=== PATIENT | female | born 1965 | race Caucasian/White ===

== ENCOUNTER 2017-02-01 20:41 | Emergency (ER) | payer BC ==
[~2017-02-01] VITALS: Ht 162.6 cm; Wt 71.8 kg
[~2017-02-01 20:41] MED LIST: BACT800T5 PO; METH500T3 PO; NAPR500T PO; TAMO20TA6 PO
[2017-02-01 20:50] VITALS: BP 147/86; PULSE 78; RESP 20; TEMP 97.4; O2SAT 99
--- NOTE | 2017-02-01 21:10 | PD ---
HPI Chief Complaint: Fall Time Seen by Provider: 20:56 Travel History International Travel<30 days: No Contact w/Intl Traveler<30days: No Traveled to known affect area: No History of Present Illness HPI This 51-year-old female fell in her shower at home. She is not sure what caused the fall. She says that shower is not slippery. She suddenly fell onto the left side of her body. She hit her head and face. She is having pain around the left eye. He is also having pain in her left knee. Her heard the fall and went to see her. She was immediately awake so she is quite uncomfortable with pain. She has a history of breast cancer and is on tamoxifen. He does not have any history of irregular heartbeat. She thinks she may have fainted previously many years ago. PFSH Past Medical History Blood Disorders: No Cancer: Yes (R BREAST CA) Cardiovascular Problems: No Chemotherapy: Yes Diabetes: No Diminished Hearing: No Endocrine: No Genitourinary: No Hepatitis: No Hiatal Hernia: No Immune Disorder: No Implanted Vascular Access Dvce: Yes Musculoskeletal: Yes (BACK PAIN) Neurologic: No Psychiatric: No Reproductive: No Respiratory: No Radiation Therapy: Yes Thyroid Disease: No Past Surgical History Abdominal Surgery: Yes (nicolas appendectomy) AICD: No Body Medical Devices: BILAT BREAST IMPLANTS Cardiac Surgery: No Ear Surgery: No Endocrine Surgery: No Eye Surgery: No Genitourinary Surgery: No Gynecologic Surgery: Yes (TUBAL) Hysterectomy: Yes Joint Replacement: No Mastectomy: Yes Oral Surgery: No Pacemaker: No Thoracic Surgery: Yes (BILAT MASTECTOMY WITH LYMPH NODES REMOVED ON RIGHT) Other Surgery: Yes (DOUBLE MASTECTOMY& 4 RECONSTRUCTIONS, BILATERAL PLANTAR FASCIOTOMIES, RAVH ) Social History Alcohol Use: Yes (RARELY) Tobacco Use: No Substance Use: No Allergies-Medications (Allergen,Severity, Reaction): Coded Allergies: Sulfa (Sulfonamide Antibiotics) (Unverified Allergy, Mild, tachcardia, 02/01/17) tachycardia Reported Meds & Prescriptions Reported Meds & Active Scripts Active Reported Multiple Vitamin 1 Tab 1 Tab PO DAILY Tylenol (Acetaminophen) 325 Mg Tab 650 Mg PO Q4H PRN Xanax (Alprazolam) 0.25 Mg Tab 0.25 Mg PO HS PRN Tamoxifen (Tamoxifen Citrate) 20 Mg Tab 20 Mg PO BID Review of Systems General / Constitutional: No: Fever, Chills Eyes: No: Diploplia, Blurred Vision HENT: No: Headaches, Vertigo Cardiovascular: No: Chest Pain or Discomfort, Palpitations Respiratory: No: Cough, Shortness of Breath Gastrointestinal: No: Nausea, Vomiting Genitourinary: No: Urgency, Frequency Musculoskeletal: Positive: Myalgias, Pain Endocrine: No: Heat Intolerance Hematologic/Lymphatic: No: Easy Bruising Physical Exam Narrative GENERAL: Well-developed female SKIN: Focused skin assessment warm/dry. HEAD:. Normocephalic. There is swelling above the left eye. There is what appears to be a superficial laceration on the lateral aspect of the eyelid. The edges of the wound are well opposed. There is some bruising of the upper portion of the orbit there is tenderness of the left orbit superiorly and inferiorly EYES: Pupils equal and round. No scleral icterus. No injection or drainage. ENT: No nasal bleeding or discharge. Mucous membranes pink and moist. NECK: Trachea midline. No JVD. CARDIOVASCULAR: Regular rate and rhythm. No murmur appreciated. RESPIRATORY: No accessory muscle use. Clear to auscultation. Breath sounds equal bilaterally. GASTROINTESTINAL: Abdomen soft, non-tender, nondistended. Hepatic and splenic margins not palpable. MUSCULOSKELETAL: No obvious deformities. No clubbing. No cyanosis. No edema. There is a skin flap which is about 1 cm in size overlying the tibial tubercle. There is some swelling and tenderness over the proximal tibia NEUROLOGICAL: Awake and alert. No obvious cranial nerve deficits. Motor grossly within normal limits. Normal speech. PSYCHIATRIC: Appropriate mood and affect; insight and judgment normal. Data Data Last Documented VS Vital Signs Date Time Temp Pulse Resp B/P (MAP) Pulse Ox O2 Delivery O2 Flow Rate FiO2 02/01/17 21:54 78 20 02/01/17 21:11 129/91 (104) 97 02/01/17 20:50 97.4 Orders Orders Electrocardiogram (02/01/17 21:04) Complete Blood Count With Diff (02/01/17 21:04) Basic Metabolic Panel (Bmp) (02/01/17 21:04) Ct Brain W/O Iv Contrast(Rout) (02/01/17 21:04) Ct Facial Bones W/O Iv Cont (02/01/17 21:04) Knee, Complete (4vws) (02/01/17 21:04) Tetanus/Diphtheria Tox Adult (Tetanus/Di (02/01/17 21:30) Ondansetron Inj (Zofran Inj) (02/01/17 21:45) Acetamin-Hydrocod 325-5 Mg (Farrar 5-325 (02/01/17 21:45) Labs Laboratory Tests Test 02/01/17 21:30 White Blood Count 7.8 TH/MM3 Red Blood Count 3.98 MIL/MM3 Hemoglobin 12.3 GM/DL Hematocrit 36.6 % Mean Corpuscular Volume 91.9 FL Mean Corpuscular Hemoglobin 31.0 PG Mean Corpuscular Hemoglobin Concent 33.7 % Red Cell Distribution Width 13.0 % Platelet Count 271 TH/MM3 Mean Platelet Volume 7.6 FL Neutrophils (%) (Auto) 60.2 % Lymphocytes (%) (Auto) 27.8 % Monocytes (%) (Auto) 9.0 % Eosinophils (%) (Auto) 2.6 % Basophils (%) (Auto) 0.4 % Neutrophils # (Auto) 4.6 TH/MM3 Lymphocytes # (Auto) 2.2 TH/MM3 Monocytes # (Auto) 0.7 TH/MM3 Eosinophils # (Auto) 0.2 TH/MM3 Basophils # (Auto) 0.0 TH/MM3 CBC Comment DIFF FINAL Differential Comment Blood Urea Nitrogen 13 MG/DL Creatinine 0.61 MG/DL Random Glucose 99 MG/DL Calcium Level 8.7 MG/DL Sodium Level 132 MEQ/L Potassium Level 3.8 MEQ/L Chloride Level 99 MEQ/L Carbon Dioxide Level 25.6 MEQ/L Anion Gap 7 MEQ/L Estimat Glomerular Filtration Rate 103 ML/MIN [facility] Medical Decision Making Medical Screen Exam Complete: Yes Emergency Medical Condition: Yes Medical Record Reviewed: Yes Differential Diagnosis Differential includes orbital fracture, subdural hematoma, fractured knee, contusions, syncope Narrative Course X-ray of the knee is negative for fracture. CT scan of the head and facial bones has been done and are negative for fracture. There is a small amount of subcutaneous air left periorbital soft tissues and there is a laceration at the site. Cervical spine has been cleared using Nexus criteria. CBC and 7 are unremarkable. An EKG shows first-degree AV block. I have not determined a cause for syncope, in fact we do not know for sure whether there was a syncopal episode. Diagnosis Primary Impression: Multiple contusions Additional Instructions: Apply ice to painful areas Disposition: 01 DISCHARGE HOME Condition: Stable David Arias MD Feb 01, 2017 21:10
[2017-02-01 21:11] VITALS: BP 129/91; PULSE 80; RESP 20; O2SAT 97
[2017-02-01] MEDS ORDERED: ALPR.25 PO (21:21)
[2017-02-01] MEDS ORDERED: TYLE325T PO (21:21)
[2017-02-01] MEDS ORDERED: MULTTAB67 PO (21:21)
[2017-02-01] MEDS ORDERED: TETANUS/DIPHTHERIA TOXOID ADULT 0.5 ML VIAL IM ONE (21:30)
--- NOTE | 2017-02-01 21:36 | RADRPT ---
EXAM DATE/TIME: 02/01/2017 21:08 [facility] COMPARISON: No previous studies available for comparison. INDICATIONS : Left knee pain. MEDICAL HISTORY : None. SURGICAL HISTORY : None. ENCOUNTER: Initial ACUITY: 1 day PAIN SCORE: 4/10 LOCATION: Left knee FINDINGS: Four view examination of the left knee demonstrates no evidence of fracture or dislocation. Bony min eralization is normal. The articular surfaces are intact. The suprapatellar soft tissues have a nor mal configuration. There is a well-corticated ossific fragment adjacent to the lateral aspect of the patella, nonacute in appearance. No effusion. CONCLUSION: No acute disease. Marcus Redd MD on February 01, 2017 at 21:34 Board Certified Radiologist. This report was verified electronically.
[2017-02-01 21:45] LABS: AUTOMATED NEUTROPHIL # 4.6 TH/MM3 (1.8-7.7); BASOPHIL % 0.4 % (0.0-2.0); EOSINOPHIL # 0.2 TH/MM3 (0-0.4); EOSINOPHIL % 2.6 % (0.0-4.0); HEMATOCRIT 36.6 % (35.0-46.0); HEMO FLAGS DIFF FINAL; LYMPH % 27.8 % (9.0-44.0); LYMPHOCYTE # 2.2 TH/MM3 (1.0-4.8); MEAN CELL VOLUME 91.9 FL (80.0-100.0); MEAN CORPUSCULAR HGB CONC 33.7 % (32.0-36.0); NEUT % 60.2 % (16.0-70.0); PLATELET COUNT 271 TH/MM3 (150-450); RED BLOOD COUNT 3.98 MIL/MM3 (4.00-5.30); WHITE BLOOD COUNT 7.8 TH/MM3 (4.0-11.0)
[2017-02-01] MEDS ORDERED: ONDANSETRON HCL 4 MG/2 ML VIAL IV PUSH ONE (21:45)
[2017-02-01] MEDS ORDERED: ACETAMINOPHEN/HYDROcodone 325 MG/5 MG TAB PO ONE (21:45)
[2017-02-01 21:56] LABS: POTASSIUM 3.8 MEQ/L (3.5-5.1)
[2017-02-01 21:58] LABS: BICARBONATE 25.6 MEQ/L (21.0-32.0)
--- NOTE | 2017-02-01 22:14 | RADRPT ---
EXAM DATE/TIME: 02/01/2017 21:55 [facility] COMPARISON: No previous studies available for comparison. INDICATIONS : Trauma. Fall. Laceration above left brow. RADIATION DOSE: 64.16 CTDIvol (mGy) MEDICAL HISTORY : Carcinoma, breast. SURGICAL HISTORY : None. ENCOUNTER: Initial ACUITY: 1 day PAIN SCALE: 7/10 LOCATION: Left frontal TECHNIQUE: Multiple contiguous axial images were obtained of the head. Using automated exposure control and adj ustment of the mA and/or kV according to patient size, radiation dose was kept as low as reasonably a chievable to obtain optimal diagnostic quality images. DICOM format image data is available electro nically for review and comparison. FINDINGS: CEREBRUM: The ventricles are normal for age. No evidence of midline shift, mass lesion, hemorrhage or acute in farction. No extra-axial fluid collections are seen. POSTERIOR FOSSA: The cerebellum and brainstem are intact. The 4th ventricle is midline. The cerebellopontine angle i s unremarkable. EXTRACRANIAL: The visualized portion of the orbits is intact. SKULL: The calvaria is intact. No evidence of skull fracture. CONCLUSION: Normal examination. Marcus Redd MD on February 01, 2017 at 22:12 Board Certified Radiologist. This report was verified electronically.
--- NOTE | 2017-02-01 22:16 | RADRPT ---
EXAM DATE/TIME: 02/01/2017 21:55 [facility] COMPARISON: No previous studies available for comparison. INDICATIONS : Trauma. Fall. Laceration above left brow. RADIATION DOSE: 34.91 CTDIvol (mGy) MEDICAL HISTORY : Carcinoma, breast. SURGICAL HISTORY : None. ENCOUNTER: Initial ACUITY: 1 day PAIN SCORE: 7/10 LOCATION: Left superior orbit. TECHNIQUE: Volumetric scanning of the facial bones was performed. Using automated exposure control and adjustme nt of the mA and/or kV according to patient size, radiation dose was kept as low as reasonably achiev able to obtain optimal diagnostic quality images. DICOM format image data is available electronicall y for review and comparison. FINDINGS: ORBITS: The orbital and infraorbital osseous structures are intact. The retroconal structures have a normal configuration. No radiopaque foreign bodies are seen. There is a small focus of air within the pre-s eptal soft tissues of the left orbit on image 23 of this presumed site of laceration. Slight soft swe lling. NASAL BONE: The nasal bone and maxillary spine are intact ZYGOMATIC ARCHES: Symmetric without evidence of fracture. SINUSES: The maxillary, ethmoid and frontal sinuses are intact. No air-fluid levels seen. NASAL CAVITY: The nasal septum is intact and midline. The lacrimal ducts are intact. SOFT TISSUES: No radiopaque foreign bodies seen. No soft-tissue swelling is seen. INTRACRANIAL: No intracranial air seen. CRIBIFORM PLATE: Grossly intact. CONCLUSION: 1. Left periorbital soft tissue swelling and a focus of subcutaneous air identified. Marcus Redd MD on February 01, 2017 at 22:13 Board Certified Radiologist. This report was verified electronically.
[2017-02-01 22:40] VITALS: BP 135/71
--- NOTE | 2017-02-02 12:39 | EKG ---
Date Performed: 02/01/2017 Time Performed: 21:30:35 PTAGE: 51 years EKG: Sinus rhythm WITH FIRST DEGREE AV BLOCK ABNORMAL ECG Compared to prior tracing no significant change PREVIOUS TRACING : 09/18/2015 07.00 DOCTOR: Jayden Sousa Interpretating Date/Time 02/02/2017 12:34:08
== END 2017-02-01 22:41 | disposition home or self-care (01) ==
LOC: PHED 20:41
DX: S01.112A Laceration without foreign body of left eyelid and periocular area, initial encounter (principal); S00.12XA Contusion of left eyelid and periocular area, initial encounter; S80.12XA Contusion of left lower leg, initial encounter; S80.02XA Contusion of left knee, initial encounter; R94.31 Abnormal electrocardiogram [ECG] [EKG]; Z23 Encounter for immunization; Z87.39 Personal history of other diseases of the musculoskeletal system and connective tissue; Z85.3 Personal history of malignant neoplasm of breast; W18.2XXA Fall in (into) shower or empty bathtub, initial encounter
CPT/HCPCS: 70450; 70486; 73564; 80048; 85025; 90471; 90714; 93005; 96374; 99285; J2405

== ENCOUNTER 2017-05-23 13:24 | Observation (INO) | payer BC ==
[2017-05-23] VITALS (10 sets, daily range): BP systolic 86–143; BP diastolic 50–94; PULSE 69–90; RESP 17–20; TEMP 96.5–98.1; O2SAT 94–98
[~2017-05-23] VITALS: Ht 165.1 cm; Wt 73.0 kg
[~2017-05-23 13:24] MED LIST changes: +ALPR.25 PO; +ASPI81TA23 PO; -BACT800T5 PO; -METH500T3 PO; +MULTTAB67 PO; -NAPR500T PO; +TYLE325T PO
--- NOTE | 2017-05-23 13:57 | PD ---
HPI Chief Complaint: Chest Pain Time Seen by Provider: 13:31 Travel History International Travel<30 days: No Contact w/Intl Traveler<30days: No Traveled to known affect area: No History of Present Illness HPI 52yo F with PMH of breast cancer s/p double mastectomy and cancer free since 2014 presents to the ED with c/o left sided chest pain for 4 days. Said it is squeezing, feels deep and intermittent. Said that today, her chest pain remained longer and was associated with sob so she became worried. No exacerbating or alleviating factors. Said she has never had similar chest pain before. She did have a stress test [address] Altamirano. Former smoker. Grandmother of heart attack in her 50s. Denies any fever, cough, n/v, abdominal pain, focal weakness or numbness. PFSH Past Medical History Blood Disorders: No Cancer: Yes (R BREAST CA) Cardiovascular Problems: No Chemotherapy: Yes Diabetes: No Diminished Hearing: No Endocrine: No Genitourinary: No Hepatitis: No Hiatal Hernia: No Immune Disorder: No Implanted Vascular Access Dvce: Yes Musculoskeletal: Yes (BACK PAIN) Neurologic: No Psychiatric: No Reproductive: No Respiratory: No Radiation Therapy: Yes Thyroid Disease: No Influenza Vaccination: No ?: Not Tubal Ligation: Yes Past Surgical History Abdominal Surgery: Yes AICD: No Appendectomy: Yes Body Medical Devices: BILAT BREAST IMPLANTS Cardiac Surgery: No Cholecystectomy: Yes Ear Surgery: No Endocrine Surgery: No Eye Surgery: No Genitourinary Surgery: No Gynecologic Surgery: Yes Hysterectomy: Yes Joint Replacement: No Mastectomy: Yes (BILATERAL W/ LYMPH NODE DISSECTION RIGHT) Oral Surgery: No Pacemaker: No Thoracic Surgery: Yes (BILAT MASTECTOMY WITH LYMPH NODES REMOVED ON RIGHT) Other Surgery: Yes (DOUBLE MASTECTOMY& 4 RECONSTRUCTIONS, BILATERAL PLANTAR FASCIOTOMIES, RAVH ) Social History Alcohol Use: Yes (RARELY) Tobacco Use: No Substance Use: No Allergies-Medications (Allergen,Severity, Reaction): Coded Allergies: Sulfa (Sulfonamide Antibiotics) (Unverified Allergy, Mild, tachcardia, ) tachycardia Reported Meds & Prescriptions Reported Meds & Active Scripts Active Reported Aspirin EC (Aspirin) 81 Mg Tabdr 81 Mg PO DAILY Multiple Vitamin 1 Tab 1 Tab PO DAILY Tamoxifen (Tamoxifen Citrate) 20 Mg Tab 20 Mg PO DAILY Review of Systems Except as stated in HPI: all other systems reviewed are Neg Physical Exam Narrative GENERAL: 52yo F in mild distress. SKIN: Focused skin assessment warm/dry. HEAD: Atraumatic. Normocephalic. EYES: Pupils equal and round. No scleral icterus. No injection or drainage. ENT: No nasal bleeding or discharge. Mucous membranes pink and moist. NECK: Trachea midline. No JVD. CARDIOVASCULAR: Regular rate and rhythm. No murmur appreciated. RESPIRATORY: No accessory muscle use. Clear to auscultation. Breath sounds equal bilaterally. GASTROINTESTINAL: Abdomen soft, non-tender, nondistended. MUSCULOSKELETAL: No obvious deformities. No clubbing. No cyanosis. No edema. NEUROLOGICAL: Awake and alert. No obvious cranial nerve deficits. Motor grossly within normal limits. Normal speech. PSYCHIATRIC: Appropriate mood and affect; insight and judgment normal. Data Data Last Documented VS Vital Signs Date Time Temp Pulse Resp B/P (MAP) Pulse Ox O2 Delivery O2 Flow Rate FiO2 05/23/17 15:20 69 17 108/72 (84) 96 Room Air 05/23/17 13:37 98.1 Orders Orders Electrocardiogram (05/23/17 13:48) Complete Blood Count With Diff (05/23/17 13:48) Basic Metabolic Panel (Bmp) (05/23/17 13:48) Ckmb (Isoenzyme) Profile (05/23/17 13:48) Troponin I (05/23/17 13:48) Chest, Single Ap (05/23/17 13:48) Iv Access Insert/Monitor (05/23/17 13:48) Ecg Monitoring (05/23/17 13:48) Oxygen Administration (05/23/17 13:48) Oximetry (05/23/17 13:48) Aspirin Chew (Aspirin Chew) (05/23/17 14:00) Nitroglycerin Sl (Nitrostat Sl) (05/23/17 14:00) Sodium Chlor 0.9% 1000 Ml Inj (Ns 1000 M (05/23/17 14:45) Troponin I (05/23/17 14:44) Electrocardiogram (05/23/17 14:31) Acetaminophen (Tylenol) (05/23/17 15:30) Labs Laboratory Tests Test 05/23/17 13:35 05/23/17 14:50 White Blood Count 7.0 TH/MM3 Red Blood Count 4.65 MIL/MM3 Hemoglobin 14.3 GM/DL Hematocrit 43.0 % Mean Corpuscular Volume 92.5 FL Mean Corpuscular Hemoglobin 30.6 PG Mean Corpuscular Hemoglobin Concent 33.1 % Red Cell Distribution Width 12.8 % Platelet Count 273 TH/MM3 Mean Platelet Volume 8.0 FL Neutrophils (%) (Auto) 58.2 % Lymphocytes (%) (Auto) 28.1 % Monocytes (%) (Auto) 10.0 % Eosinophils (%) (Auto) 2.3 % Basophils (%) (Auto) 1.4 % Neutrophils # (Auto) 4.0 TH/MM3 Lymphocytes # (Auto) 2.0 TH/MM3 Monocytes # (Auto) 0.7 TH/MM3 Eosinophils # (Auto) 0.2 TH/MM3 Basophils # (Auto) 0.1 TH/MM3 CBC Comment DIFF FINAL Differential Comment Blood Urea Nitrogen 12 MG/DL Creatinine 0.69 MG/DL Random Glucose 82 MG/DL Calcium Level 8.6 MG/DL Sodium Level 137 MEQ/L Potassium Level 3.8 MEQ/L Chloride Level 102 MEQ/L Carbon Dioxide Level 27.5 MEQ/L Anion Gap 8 MEQ/L Estimat Glomerular Filtration Rate 89 ML/MIN Total Creatine Kinase 54 U/L Troponin I LESS THAN 0.02 NG/ML 0.02 NG/ML MDM Medical Decision Making Medical Screen Exam Complete: Yes Emergency Medical Condition: Yes Interpretation(s) EKG: NSR 79bpm. Normal axis. No ST segment elevation or depression. EKG: NSR 70bpm. Normal axis. New TWI aVL, V2. QTc mildly prolong at 469ms. Differential Diagnosis ACS vs. GERD vs. musculoskeletal pain vs. pneumonia Narrative Course 52yo F with left sided chest pain that is squeezing and intermittent. According to Wells criteria, do not think pt has PE. Pt denies any hemoptysis, recent surgery or immobilization, history or PE/DVT, leg swelling or pain. Pt is not tachycardic and saturating at 98% on RA. Labs reviewed, no leukocytosis. H/H normal. Troponin negative. I was informed by my nurse that pt's blood pressure dropped after her third sublingual nitroglycerin to systolic in the 80s. Chest pain has actually improved. Pt felt dizzy and her head was place flat which helped. She was also given some NS IVF and blood pressure improved. My nurse said her heart rate went down to 40s and it was normal when I walked in. Second EKG was completed and is was NSR 70bpm. Normal axis. TWI aVL, V2 which is new from 1st EKG. QTc also is mildly prolong in 2nd EKG. Will admit for serial EKG and enzymes. Will send second enzyme. Troponin #2 negative. Pt now has a headache after nitro and given acetaminophen. CXR negative. Discussed with Dr. Bullock and accepted to his service. Diagnosis Primary Impression: Chest pain Qualified Codes: R07.9 - Chest pain, unspecified Admitting Information Admitting Physician Requests: Observation Carlotta Cosby DO May 23, 2017 13:57
[2017-05-23 13:59] LABS: BASOPHIL # 0.1 TH/MM3 (0-0.2); BASOPHIL % 1.4 % (0.0-2.0); EOSINOPHIL # 0.2 TH/MM3 (0-0.4); EOSINOPHIL % 2.3 % (0.0-4.0); HEMOGLOBIN 14.3 GM/DL (11.6-15.3); LYMPH % 28.1 % (9.0-44.0); MEAN CELL VOLUME 92.5 FL (80.0-100.0); MEAN CORPUSCULAR HEMOGLOBIN 30.6 PG (27.0-34.0); MEAN CORPUSCULAR HGB CONC 33.1 % (32.0-36.0); MONOCYTE # 0.7 TH/MM3 (0-0.9); NEUT % 58.2 % (16.0-70.0); PLATELET COUNT 273 TH/MM3 (150-450); RED BLOOD COUNT 4.65 MIL/MM3 (4.00-5.30); RED CELL DISTRIBUTION WIDTH 12.8 % (11.6-17.2)
[2017-05-23] MEDS ORDERED: ASPIRIN 81 MG CHEW TAB PO ONE (14:00)
[2017-05-23 14:08] LABS: CHLORIDE 102 MEQ/L (98-107); SODIUM (NA) 137 MEQ/L (136-145)
[2017-05-23 14:10] LABS: CALCIUM 8.6 MG/DL (8.5-10.1)
[2017-05-23 14:11] LABS: BICARBONATE 27.5 MEQ/L (21.0-32.0); BLOOD UREA NITROGEN 12 MG/DL (7-18); GLUCOSE,RANDOM 82 MG/DL (74-106)
[2017-05-23] MEDS: NITROGLYCERIN 0.4 MG SL 25 TABS/BTL SL SCH ×3 (14:12→14:21)
[2017-05-23 14:14] LABS: CREATININE 0.69 MG/DL (0.50-1.00); GLOMERULAR FILTRATION RATE 89 ML/MIN (>89)
[2017-05-23 14:19] LABS: TROPONIN I LESS THAN 0.02 NG/ML (0.02-0.05)
[2017-05-23] MEDS ORDERED: SODIUM CHLOR 0.9% 1000 ML INJ 1,000 ML IV ONE (14:45)
[2017-05-23] MEDS ORDERED: ACETAMINOPHEN 325 MG TAB PO ONE (15:30)
--- NOTE | 2017-05-23 15:30 | RADRPT ---
EXAM DATE/TIME: 05/23/2017 14:47 [facility] COMPARISON: No previous studies available for comparison. INDICATIONS : Chest pain, short of breath MEDICAL HISTORY : Carcinoma, breast. SURGICAL HISTORY : Mastectomy, bilateral. ENCOUNTER: Initial ACUITY: 4 - 6 days PAIN SCORE: 3/10 LOCATION: Bilateral chest FINDINGS: Single AP view of the chest. The lungs are clear. Cardiomediastinal silhouette within normal limits. No evidence of pleural effusion or pneumothorax. CONCLUSION: No acute cardiopulmonary disease identified. Michele Medina MD on May 23, 2017 at 15:28 Board Certified Radiologist. This report was verified electronically.
[2017-05-23] MEDS ORDERED: ONDANSETRON HCL 4 MG/2 ML VIAL IV PUSH PRN (17:30)
[2017-05-23] MEDS ORDERED: SODIUM CHLORIDE 0.9% FLUSH 10 ML FLUSH IV FLUSH PRN (17:30)
[2017-05-23] MEDS: ACETAMINOPHEN 500 MG CPLT PO PRN ×2 (17:58→21:14)
--- NOTE | 2017-05-23 18:19 | HHI.HP ---
HPI Service [facility] Primary Care Physician Christina Haji M.D. Admission Diagnosis Chest pain Diagnoses: (1) Chest pain Chief Complaint: Chest pain Travel History International Travel<30 Days: No Contact w/Intl Traveler <30 Da: No Traveled to Known Affected Are: No History of Present Illness This is a pleasant 52-year-old female patient with a known medical history of breast cancer who presented to the ED with complaints of chest pain. Patient states that every night for the past four days while resting in bed she has developed a left sided chest pain, characterized as intermittent and tight in nature, denies any radiation of pain, rates it a 3/10 at its worst on pain scale , denies any associated vomiting or diaphoresis, does admit to associated nausea and shortness of breath with pain. Patient states that it feels "deep" and squeezing at times. Denies ever having this pain before. Denies any alleviating or aggravating factors. She states she did not take anything for the pain at home. Patient did undergo a cardiac stress test roughly [address] Altamirano which was reportedly negative. Patient has been treated for right breast cancer with bilateral vasectomy and dorsal flap surgery. Patient does have chronic back pain due to this surgery as well as pain from mastectomy , but states that this pain is much different. Denies any recent illness including fever, cough, nausea, vomiting, abdominal pain, diarrhea or dysuria. Does admit to increase in recent stressors. 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 Review of Systems Constitutional: DENIES: Fever, Chills Eyes: DENIES: Blurred vision, Diplopia Respiratory: COMPLAINS OF: Shortness of breath, DENIES: Cough, Sputum production Cardiovascular: COMPLAINS OF: Chest pain, DENIES: Palpitations Gastrointestinal: COMPLAINS OF: Nausea, DENIES: Abdominal pain, Black stools, Bloody stools, Constipation, Diarrhea, Vomiting Hematologic/lymphatic: DENIES: Bruising Immunologic/allergic: DENIES: Eczema Neurologic: DENIES: Abnormal gait Psychiatric: COMPLAINS OF: Anxiety Except as stated in HPI: all other systems reviewed are Neg Past Family Social History Past Medical History Right breast cancer with mastectomy on radiation by mouth Chronic back pain Past Surgical History Bilateral breast mastectomy and breast implants Cholecystectomy Reported Medications Active Reported Aspirin EC (Aspirin) 81 Mg Tabdr 81 Mg PO DAILY Multiple Vitamin 1 Tab 1 Tab PO DAILY Tamoxifen (Tamoxifen Citrate) 20 Mg Tab 20 Mg PO DAILY Allergies: Coded Allergies: Sulfa (Sulfonamide Antibiotics) (Unverified Allergy, Mild, tachcardia, ) tachycardia Active Ordered Medications Current Medications Medications (Trade) Dose Ordered Sig/Yuridia Route Start Time Stop Time Status Last Admin (NS Flush) 2 ml UNSCH PRN IV FLUSH 05/23/17 17:30 (NS Flush) 2 ml BID IV FLUSH 05/23/17 21:00 (Tylenol) 500 mg Q4H PRN PO 05/23/17 17:30 (Zofran Inj) 4 mg Q6H PRN IV PUSH 05/23/17 17:30 (Ecotrin Ec) 81 mg DAILY PO 05/24/17 09:00 (Nolvadex) 20 mg DAILY PO 05/24/17 09:00 (Theragran) 1 tab DAILY PO 05/24/17 09:00 Family History Maternal medical history significant for hypertension. Social History Denies any current tobacco use, states she quit 25 years ago. Denies any alcohol use. Denies any illicit drug use. Physical Exam Vital Signs Vital Signs Date Time Temp Pulse Resp B/P (MAP) Pulse Ox O2 Delivery O2 Flow Rate FiO2 05/23/17 17:02 97.7 74 20 125/88 (100) 94 05/23/17 17:00 05/23/17 15:20 69 17 108/72 (84) 96 Room Air 05/23/17 14:25 17 05/23/17 14:23 85 18 86/50 (62) Room Air 05/23/17 14:20 86 17 106/75 (85) 94 Room Air 05/23/17 14:15 90 18 102/78 (86) Room Air 05/23/17 14:12 74 18 120/86 (97) Room Air 05/23/17 13:37 98.1 80 18 143/94 (110) 98 Physical Exam GENERAL: Well-nourished, well-developed patient in NAD. SKIN: Warm and dry. No rash. HEAD: Normocephalic. Atraumatic. EYES: Pupils equal and round. No scleral icterus. No injection or drainage. ENT: No nasal bleeding or discharge. Mucous membranes pink and moist. NECK: Supple. Trachea midline. CARDIOVASCULAR: Regular rate and rhythm. S1, S2 noted. No murmur appreciated. no reproducible chest pain. RESPIRATORY: No accessory muscle use. Clear to auscultation. Breath sounds equal bilaterally. GASTROINTESTINAL: Abdomen soft, non-tender, nondistended. Normoactive bowel sounds x4. MUSCULOSKELETAL: No obvious deformities. Extremities without clubbing, cyanosis , or edema. NEUROLOGICAL: Awake and alert. No obvious cranial nerve deficits. Motor grossly within normal limits. 5/5 muscle strength in bilateral upper and lower extremities. Normal speech. PSYCHIATRIC: Appropriate mood and affect; insight and judgment normal. Laboratory Laboratory Tests Test 05/23/17 13:35 05/23/17 14:50 White Blood Count 7.0 Red Blood Count 4.65 Hemoglobin 14.3 Hematocrit 43.0 Mean Corpuscular Volume 92.5 Mean Corpuscular Hemoglobin 30.6 Mean Corpuscular Hemoglobin Concent 33.1 Red Cell Distribution Width 12.8 Platelet Count 273 Mean Platelet Volume 8.0 Neutrophils (%) (Auto) 58.2 Lymphocytes (%) (Auto) 28.1 Monocytes (%) (Auto) 10.0 Eosinophils (%) (Auto) 2.3 Basophils (%) (Auto) 1.4 Neutrophils # (Auto) 4.0 Lymphocytes # (Auto) 2.0 Monocytes # (Auto) 0.7 Eosinophils # (Auto) 0.2 Basophils # (Auto) 0.1 CBC Comment DIFF FINAL Differential Comment Blood Urea Nitrogen 12 Creatinine 0.69 Random Glucose 82 Calcium Level 8.6 Sodium Level 137 Potassium Level 3.8 Chloride Level 102 Carbon Dioxide Level 27.5 Anion Gap 8 Estimat Glomerular Filtration Rate 89 Total Creatine Kinase 54 Troponin I LESS THAN 0.02 0.02 Result Diagram: 05/23/17 1335 05/23/17 1335 Imaging Last Impressions Chest X-Ray 05/23/17 1348 Signed Impressions: Service Date/Time: Tuesday, May 23, 2017 14:47 - CONCLUSION: No acute cardiopulmonary disease identified. Michele Medina MD Septic Shock Reassessment Septic shock perfusion: reassessment completed Caprini VTE Risk Assessment Caprini VTE Risk Assessment: No/Low Risk (score <= 1) Caprini Risk Assessment Model Point Value = 1 Point Value = 2 Point Value = 3 Point Value = 5 Age 41-60 Minor surgery BMI > 25 kg/m2 Swollen legs Varicose veins or History of unexplained or recurrent spontaneous Oral contraceptives or hormone replacement Sepsis (< 1 month) Serious lung disease, including pneumonia (< 1 month) Abnormal pulmonary function Acute myocardial infarction Congestive heart failure (< 1 month) History of inflammatory bowel disease Medical patient at bed rest Age 61-74 Arthroscopic surgery Major open surgery (> 45 min) Laparoscopic surgery (> 45 min) Malignancy Confined to bed (> 72 hours) Immobilizing plaster cast Central venous access Age >= 75 History of VTE Family history of VTE Factor V Leiden Prothrombin [id number] Lupus anticoagulant Anticardiolipin antibodies Elevated serum homocysteine Heparin-induced thrombocytopenia Other congenital or acquired thrombophilia Stroke (< 1 month) Elective arthroplasty Hip, pelvis, or leg fracture Acute spinal cord injury (< 1 month) Prophylaxis Regimen Total Risk Factor Score Risk Level Prophylaxis Regimen 0-1 Low Early ambulation 2 Moderate Order ONE of the following: *Sequential Compression Device (SCD) *Heparin 5000 units SQ BID 3-4 Higher Order ONE of the following medications: *Heparin 5000 units SQ TID *Enoxaparin/Lovenox 40 mg SQ daily (WT < 150 kg, CrCl > 30 mL/min) *Enoxaparin/Lovenox 30 mg SQ daily (WT < 150 kg, CrCl > 10-29 mL/min) *Enoxaparin/Lovenox 30 mg SQ BID (WT < 150 kg, CrCl > 30 mL/min) AND/OR *Sequential Compression Device (SCD) 5 or more Highest Order ONE of the following medications: *Heparin 5000 units SQ TID (Preferred with Epidurals) *Enoxaparin/Lovenox 40 mg SQ daily (WT < 150 kg, CrCl > 30 mL/min) *Enoxaparin/Lovenox 30 mg SQ daily (WT < 150 kg, CrCl > 10-29 mL/min) *Enoxaparin/Lovenox 30 mg SQ BID (WT < 150 kg, CrCl > 30 mL/min) AND *Sequential Compression Device (SCD) Assessment and Plan Problem List: (1) Chest pain ICD Code: R07.9 - Chest pain, unspecified Status: Acute Plan: Patient has been admitted to the chest pain center for observation. Serial EKGs and serial troponins have been ordered for ACS ruling out purposes. Initial troponin flat. Continue to follow trends. EKG reviewed showing rhythm with controlled heart rate, no ST elevation or changes to indicate ischemia. Chest pain has not resolved. Patient was given in nitroglycerin and aspirin in the ED. Placed on aspirin daily. CBC and BMP reviewed which are essentially unremarkable. Chest x-ray revealed no acute cardiopulmonary disease. Supplemental O2 as needed, resting comfortably on room air. Continue cardiac telemetry, monitor for any arrhythmias. Nothing by mouth after midnight. Patient will undergo a cardiac stress test in the morning if ACS ruled out, to further evaluate for ischemia. Patient is stable at this time and agreeable to the plan (2) Breast cancer in female ICD Code: C50.919 - Malignant neoplasm of unspecified site of unspecified female breast Plan: Patient takes tamoxifen. We'll continue. DVT prophylaxis: SCDs. Problem Qualifiers (1) Chest pain: Qualified Codes: R07.9 - Chest pain, unspecified Acacia Crenshaw May 23, 2017 18:19
[2017-05-23 19:04] LABS: TROPONIN I LESS THAN 0.02 NG/ML (0.02-0.05)
[2017-05-23] MEDS: SODIUM CHLORIDE 0.9% FLUSH 10 ML FLUSH IV FLUSH SCH (21:13)
[2017-05-23 22:21] LABS: TROPONIN I LESS THAN 0.02 NG/ML (0.02-0.05)
[2017-05-23] MEDS ORDERED: diphenhydrAMINE HCL 50 MG CAP PO PRN (23:00)
[2017-05-24] VITALS: BP 120/78; PULSE 82; RESP 18; TEMP 97.2; O2SAT 96
[2017-05-24 08:00] VITALS: BP 130/84; PULSE 79; RESP 20; TEMP 96.2; O2SAT 95
[2017-05-24] MEDS ORDERED: TAMOXIFEN CITRATE 10 MG TAB PO SCH (09:00)
[2017-05-24] MEDS ORDERED: MULTIVITAMIN TAB PO SCH (09:00)
[2017-05-24] MEDS ORDERED: ASPIRIN EC 81 MG TABEC PO SCH (09:00)
[2017-05-24] MEDS: SODIUM CHLORIDE 0.9% FLUSH 10 ML FLUSH IV FLUSH SCH (09:07)
[2017-05-24] MEDS ORDERED: INFLUENZA VIRUS VACCINE (QUADRIVALENT) 0.5 ML SYR IM ONE (10:00)
--- NOTE | 2017-05-24 11:05 | HHI.PR ---
Subjective Remarks Follow-up atypical chest pain 05/24/16-patient seen and examined, currently denies any chest pain. Said she' s had chest pain x several days on and off described as pressure like without any associated diaphoresis. However she denies any nocturnal type of chest pain She also reported history of stressors in her life. Currently The patient is nothing by mouth pending stress test Objective Vitals Vital Signs Date Time Temp Pulse Resp B/P (MAP) Pulse Ox O2 Delivery O2 Flow Rate FiO2 05/24/17 08:00 96.2 79 20 130/84 (99) 95 05/24/17 00:00 97.2 82 18 120/78 (92) 96 05/23/17 22:14 20 05/23/17 21:12 95 21 05/23/17 20:00 96.5 77 20 117/74 (88) 95 05/23/17 20:00 77 05/23/17 18:00 82 05/23/17 17:02 97.7 74 20 125/88 (100) 94 05/23/17 17:00 05/23/17 15:20 69 17 108/72 (84) 96 Room Air 05/23/17 14:25 17 05/23/17 14:23 85 18 86/50 (62) Room Air 05/23/17 14:20 86 17 106/75 (85) 94 Room Air 05/23/17 14:15 90 18 102/78 (86) Room Air 05/23/17 14:12 74 18 120/86 (97) Room Air 05/23/17 13:37 98.1 80 18 143/94 (110) 98 I/O 05/23/17 05/23/17 05/23/17 05/24/17 05/24/17 05/24/17 07:00 15:00 23:00 07:00 15:00 23:00 Intake Total 1300 ml 240 ml Balance 1300 ml 240 ml Intake Oral 300 ml 240 ml IV Total 1000 ml # Voids 3 # Bowel Movements 0 Result Diagram: 05/23/17 1335 05/23/17 1335 Imaging Last Impressions Chest X-Ray 05/23/17 1348 Signed Impressions: Service Date/Time: Tuesday, May 23, 2017 14:47 - CONCLUSION: No acute cardiopulmonary disease identified. Michele Medina MD Objective Remarks GENERAL: NAD SKIN: Warm and dry. HEAD: Normocephalic. EYES: No scleral icterus. No injection or drainage. NECK: Supple, trachea midline. No JVD or lymphadenopathy. CARDIOVASCULAR: Regular rate and rhythm without murmurs, gallops, or rubs. RESPIRATORY: Breath sounds equal bilaterally. No accessory muscle use. GASTROINTESTINAL: Abdomen soft, non-tender, nondistended. MUSCULOSKELETAL: No cyanosis, or edema. BACK: Nontender without obvious deformity. No CVA tenderness. A/P Problem List: (1) Chest pain ICD Code: R07.9 - Chest pain, unspecified Status: Acute (2) Breast cancer in female ICD Code: C50.919 - Malignant neoplasm of unspecified site of unspecified female breast Assessment and Plan 52-year-old female with Atypical chest pain ACS ruled out per protocol with negative cardiac enzymes and EKGs CXR without any cardio pulmonary disease Lexiscan stress test pending this AM and cardiology consultation when necessary if positive stress test Continue with ASA, NTG SL History of Breast cancer Continue with Tamoxifen 20mg daily DVT prophylaxis: B-SCDs Problem Qualifiers (1) Chest pain: Qualified Codes: R07.9 - Chest pain, unspecified Brenden Murguia MD May 24, 2017 11:05
[2017-05-24] MEDS: ACETAMINOPHEN 500 MG CPLT PO PRN (11:08)
[2017-05-24 12:00] VITALS: BP 122/88; PULSE 79; RESP 20; TEMP 96.4; O2SAT 96
--- NOTE | 2017-05-24 12:08 | EKG ---
Date Performed: 05/23/2017 Time Performed: 14:31:28 PTAGE: 52 years EKG: Sinus rhythm PROLONGED QT INTERVAL NONSPECIFIC T WAVE CHANGES ARE NOTED, CANNOT RULE OUT ISCHEMIA Clinical correl ation is recommended ABNORMAL ECG NO PREVIOUS TRACING DOCTOR: Surinder Rodriguez Interpretating Date/Time 05/24/2017 12:05:53
--- NOTE | 2017-05-24 12:15 | EKG ---
Date Performed: 05/23/2017 Time Performed: 13:31:37 PTAGE: 52 years EKG: Sinus rhythm NORMAL ECG INTERPRETATION BASED ON A DEFAULT AGE OF 40 YEARS PREVIOUS TRACING : 02/01/2017 21.30 Since the prior tracing, there has been no significan t change DOCTOR: Surinder Rodriguez Interpretating Date/Time 05/24/2017 12:13:38
--- NOTE | 2017-05-24 12:15 | EKG ---
Date Performed: 05/23/2017 Time Performed: 18:06:59 PTAGE: 52 years EKG: Sinus rhythm NORMAL ECG PREVIOUS TRACING : 05/23/2017 14.31 Since the prior tracing, there has been no significant rivas DOCTOR: Surinder Rodriguez Interpretating Date/Time 05/24/2017 12:13:46
--- NOTE | 2017-05-24 12:15 | EKG ---
Date Performed: 05/23/2017 Time Performed: 21:19:52 PTAGE: 52 years EKG: Sinus rhythm NORMAL ECG PREVIOUS TRACING : 05/23/2017 18.06 Since the prior tracing, there has been no significant rivas DOCTOR: Surinder Rodriguez Interpretating Date/Time 05/24/2017 12:13:53
--- NOTE | 2017-05-24 13:50 | RADRPT ---
EXAM DATE/TIME: 05/24/2017 12:15 [facility] COMPARISON: No previous studies available for comparison. INDICATIONS : Left chest pain with dyspnea. Angina. DOSE: 26.3 mCi Tc99m Myoview at stress. 8.6 mCi Tc99m Myoview at rest. 0.4 mg Lexiscan STRESS SYMPTOMS: Dyspnea and nausea. EJECTION FRACTION: > 70% MEDICAL HISTORY : Carcinoma, breast. SURGICAL HISTORY : Hysterectomy. Mastectomy, bilateral. Cholecystectomy. Appendectomy. ENCOUNTER: Initial ACUITY: 4 - 6 days PAIN SCALE: 7/10 LOCATION: Left chest TECHNIQUE: The patient underwent pharmacologic stress with infusion of prescribed dose. Continuous ECG tracing was monitored during stress. Gated SPECT imaging was performed after stress and conventional SPECT i maging was performed at rest. The examination was performed on a SPECT/CT scanner, both attenuation and non-corrected datasets were reviewed. FINDINGS: DISTRIBUTION: The maximum perfused segment at stress is in the inferior wall. PERFUSION STUDY: The pattern of perfusion at stress is within normal limits. GATED STUDY: There is intact wall motion and thickening without hypokinetic or dyskinetic segments. CONCLUSION: No focal wall motion abnormality. No reversible perfusion defects. RISK CATEGORY: 1- Low Risk. Michele Medina MD on May 24, 2017 at 13:46 Board Certified Radiologist. This report was verified electronically.
--- NOTE | 2017-05-24 14:12 | HHI.DCPOC ---
Discharge Care Plan Diagnosis: (1) Chest pain Goals to Promote Your Health * To prevent worsening of your condition and complications * To maintain your health at the optimal level Directions to Meet Your Goals Take your medications as prescribed Follow your dietary instruction Follow activity as directed Keep your appointments as scheduled Take your immunizations and boosters as scheduled If your symptoms worsen call your PCP, if no PCP go to Urgent Care Center or Emergency Room Smoking is Dangerous to Your Health. Avoid second hand smoke Call the 24-hour hour crisis hotline for domestic abuse at Acacia Crenshaw May 24, 2017 14:12
--- NOTE | 2017-05-24 14:31 | HHI.PR ---
Addendum to Inpatient Note Addendum Reason: Additional Documentation Additional Information Nuclear stress test negative, therefore patient will be discharged home Discharge patient to home Condition on discharge: Improved Regular Diet as tolerated Ad Maggy activity Rx written:see emr Follow-up with primary care physician in 1week Brenden Murguia MD May 24, 2017 14:31
[2017-05-24] MEDS ORDERED: REGADENOSON INJ 0.4 MG/5 ML SYR IV ONE (15:49)
--- NOTE | 2017-05-25 13:01 | TR ---
Date Performed: 05/24/2017 Time Performed: 13:09:43 DOCTOR: Jayden Sousa DRUG LIST: CLINICAL HISTORY: REASON FOR TEST: Chest pain REASON FOR ENDING: OBSERVATION: CONCLUSION: Lexiscan stress test was performed under standard four minute protocol. Radionuclid e was injected one minute prior to ending the test. No electrocardiographic abormalities were present to suggest ischemia. Nuclear imaging and interpretation are pending. COMMENTS:
== END 2017-05-24 14:58 | disposition home or self-care (01) ==
LOC: PHED 13:24 → PHEDA 15:48 → PH3A 16:44
PROVIDERS: ADMIT Hospitalist; ATTEND Hospitalist
DX: R07.9 Chest pain, unspecified (principal); C50.911 Malignant neoplasm of unspecified site of right female breast; M54.9 Dorsalgia, unspecified; G89.29 Other chronic pain; R94.31 Abnormal electrocardiogram [ECG] [EKG]; Z79.82 Long term (current) use of aspirin; Z87.891 Personal history of nicotine dependence; Z90.10 Acquired absence of unspecified breast and nipple; Z90.710 Acquired absence of both cervix and uterus; Z98.82 Breast implant status; Z82.49 Family history of ischemic heart disease and other diseases of the circulatory system; Z23 Encounter for immunization
CPT/HCPCS: 71045; 78452; 80048; 82550; 84484; 85025; 90471; 90686; 93005; 93017; 96360; 99285; A9502; G0378; J2785; J7030; Q0163; G0008; Q2038